=== PATIENT | female | born 1975 | race Caucasian/White ===

== ENCOUNTER 2020-03-15 12:12 | Emergency (ER) | payer OTHER ==
[2020-03-15 12:27] VITALS: BP 125/80; PULSE 73; TEMP 98.3; BMI 25.4
--- NOTE | 2020-03-15 12:27 | PDOC ---
Rapid Medical Evaluation Chief Complaint: Respiratory Time Seen by Provider: 03/15/20 12:23 Medical Evaluation: 03/15/20 12:23 HPI: COVID-19 CDC guideline data points: The patient is a 44 y/o female with complaint of post nasal drip and concern for COVID. 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 She denies any fevers or chills. She denies any persistent cough. ROS: NEGATIVE: difficulty breathing, shortness of breath, chest pain, lightheadedness, dizziness, nausea, vomiting and diarrhea. Other 12 point ROS reviewed and negative. Positive: post nasal drip Exam: General: NAD, Well-Appearing, Awake, Alert Oriented x3. Vital signs stable. ENT: No rhinorrhea or nasal congestion. Neck: FROM, no midline tenderness. Lungs: Clear to auscultation bilaterally without wheezes, rhonchi or rales. Nor mal excursion. Patient is able to speak in full sentences. Heart: HR: 73, Regular rhythm, S1-S2 present, no murmurs rubs or gallops. Abdomen: Non-distended. MSK/Extremities: No decrease ROM, No obvious deformities. No obvious cyanosis noted. Neuro: Normal Gait, Cranial Nerves II through XII Grossly Intact. Skin: No obvious rashes, bruising. Color Normal Appearing. Assessment/Plan: The patient is a 44 y/o female with complaint of post nasal drip and concern for COVID. 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 She denies any fevers or chills. She denies any persistent cough. Patient has a history of this/these comorbidities: [none], Multiple covid exposures ASSESSMENT: Denies recent travel and known Covid exposure. Treatment: COVID swab Discharge Disposition - Diagnosis Exposure to COVID-19 virus, Post-nasal drip - Discharge Dispostion Disposition: HOME Condition at time of disposition: Stable - Referrals - Patient Instructions Printed Discharge Instructions: [facility] COVID-19 Isolation Protocol, [facility]-Coronavirus Instructions - Post Discharge Activity
== END 2020-03-15 12:31 | disposition home or self-care (01) ==
LOC: JER 12:12
DX: R09.82 Postnasal drip (principal); Z20.828 Contact with and (suspected) exposure to other viral communicable diseases
CPT/HCPCS: 99283-25; U0003

== ENCOUNTER 2021-08-18 14:59 | Emergency (ER) | payer OTHER ==
[2021-08-18 15:47] VITALS: BP 121/72; PULSE 89; TEMP 98; BMI 26.4
== END 2021-08-18 15:48 | disposition home or self-care (01) ==
LOC: JER 14:59
DX: J06.9 Acute upper respiratory infection, unspecified (principal)
CPT/HCPCS: 99283-25; C9803; U0003; U0005

== ENCOUNTER 2021-09-11 11:19 | Emergency (ER) | payer OTHER | END 2021-09-11 15:00 | disposition home or self-care (01) | LOC: JVIRT 11:19 | DX: Z11.52 Encounter for screening for COVID-19 (principal) | CPT/HCPCS: C9803; Q3014-GT; U0003; U0005 ==

== ENCOUNTER 2021-10-03 14:13 | Emergency (ER) | payer OTHER | END 2021-10-03 14:56 | disposition home or self-care (01) | LOC: JVIRT 14:13 | DX: U07.1 COVID-19 (principal) | CPT/HCPCS: C9803; Q3014-GT; U0003; U0005 ==